=== PATIENT | male | born 1985 | race Caucasian/White ===

== ENCOUNTER 2022-03-28 13:15 | Emergency (ER) | payer OTHER ==
[2022-03-28 13:58] LABS: Group A Strep NOT DETECTED (NEGATIVE)
[2022-03-28 14:10] LABS: INFLUENZA A NEGATIVE (NEGATIVE); INFLUENZA B NEGATIVE (NEGATIVE); RESPIRATORY SYNCTIAL VIRUS NEGATIVE (Negative)
[2022-03-28 14:33] LABS: SARS-CoV-2 Xpert Express POSITIVE (NEGATIVE)
[2022-03-28 14:49] VITALS: BP 132/67; PULSE 78
[2022-03-28 14:53] VITALS: O2SAT 95
--- NOTE | 2022-03-28 14:53 | ERPHSYRPT ---
- History of Present Illness Time Seen by Provider: 03/28/22 13:26 Source: patient Exam Limitations: no limitations Patient Subjective Stated Complaint: PT states "It started out as congestion and now my voice is going. 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 PT ambulates with an upright steady gait, able to speak in full sentences pt voice is scratchy. Physician History: 37 years old male presented in the ER with flulike symptoms for the last week with progressive worsening. Patient reported initially started as a head cold and gradually getting worse with congestion in sinuses, sore throat and voice change without difficulty breathing or cough. 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 Timing/Duration: day(s) (4), constant, gradual onset, worse Cough Quality/Degree: no cough Possible Cause: no prior episodes Associated Symptoms: muscle aches, nasal congestion, nasal drainage, sinus infection, sore throat, No fever, No chest pain/soreness, No cough, No dizziness, No facial pain Allergies/Adverse Reactions: No Known Drug Allergies Allergy (Verified 03/28/22 13:24) Home Medications: Atenolol [Tenormin] 100 mg PO 03/28/22 [History] Atorvastatin Calcium [Lipitor 20MG Tablet] 20 mg PO 03/28/22 [History] Famotidine 20 mg [Pepcid 20 MG] 20 mg PO 03/28/22 [History] Metformin HCl 500 mg [Glucophage 500 MG] 500 mg PO BIDWM 03/28/22 [History] Hx Tetanus, Diphtheria Vaccination/Date Given: No Hx Influenza Vaccination/Date Given: No Hx Pneumococcal Vaccination/Date Given: No Immunizations Up to Date: Yes Travel Risk - International Travel Have you traveled outside of the country in past 3 weeks: No - Coronavirus Screening Are you exhibiting any of the following symptoms?: No Close contact with a COVID-19 positive Pt in past 14-21 Days: No - Vaccine Status Have you recieved a Covid-19 vaccination: Yes Assistant Customer Service Manager: [employer] - Vaccination Dates Date of 2cond Vaccination (if applicable): 2020 - Review of Systems Constitutional: No Symptoms Eyes: No Symptoms Ears, Nose, & Throat: Nose Congestion, Sinus Drainage, Throat Swelling Respiratory: No Symptoms Cardiac: No Symptoms Abdominal/Gastrointestinal: No Symptoms Musculoskeletal: Myalgias Skin: No Symptoms Neurological: No Symptoms Psychological: No Symptoms Endocrine: No Symptoms Hematologic/Lymphatic: No Symptoms Immunological/Allergic: No Symptoms - Past Medical History Pertinent Past Medical History: Yes Cardiac History: Hypertension Endocrine Medical History: Diabetes Type II - Past Surgical History Past Surgical History: No - Social History Smoking Status: Never smoker Exposure to second hand smoke: No Drug Use: none Patient Lives Alone: No - Nursing Vital Signs Nursing Vital Signs: Initial Vital Signs Temperature 98.3 F 03/28/22 13:20 Pulse Rate 85 03/28/22 13:20 Respiratory Rate 20 03/28/22 13:20 Blood Pressure 137/89 03/28/22 13:20 O2 Sat by Pulse Oximetry 95 03/28/22 13:20 Pain Scale Pain Intensity 0 - Physical Exam General Appearance: no apparent distress, alert Eye Exam: PERRL/EOMI Ears, Nose, Throat Exam: moist mucous membranes, pharyngeal erythema Neck Exam: normal inspection, non-tender, supple, full range of motion Respiratory Exam: normal breath sounds, lungs clear Cardiovascular Exam: regular rate/rhythm, normal heart sounds Back Exam: normal inspection, normal range of motion Extremity Exam: normal inspection, normal range of motion Neurologic Exam: alert, oriented x 3, cooperative Skin Exam: normal color SpO2 Interpretation: normal SpO2: 95 O2 Delivery: Room Air Lab/Rad Data: Laboratory Results 03/28/22 Range/Units Unknown Influenza Type A Ag NEGATIVE (NEGATIVE) Influenza Type B Ag NEGATIVE (NEGATIVE) RSV (PCR) NEGATIVE (Negative) SARS-CoV-2 (PCR) POSITIVE A (NEGATIVE) Group A Strep Antibody NOT DETECTED (NEGATIVE) - Progress Progress: unchanged Air Movement: good Progress Note: 03/28/22 14:50 Patient has positive COVID-19. Not in any distress. Nontoxic appearance. Recommended supportive care and outpatient follow-up. Discussed signs symptoms of worsening needing return to ER which he seems understanding. Blood Culture(s) Obtained: No Antibiotics given: No Counseled pt/family regarding: lab results, diagnosis, need for follow-up - Departure Departure Disposition: Home Clinical Impression: Viral syndrome, COVID-19 virus detected Condition: Stable Critical Care Time: No Referrals: GEOVANNY MURILLO MD [Primary Care Provider] - Follow Up with PCP/3 days Instructions: COVID-19 ED Additional Instructions: Follow contact/droplet precautions. Take Tylenol/ibuprofen as needed. Follow- up with primary care for reevaluation. Return to ER for worsening congestion or if having difficulty breathing, persistent high-grade fever, chest pain etc.
== END 2022-03-28 15:02 | disposition home or self-care (01) ==
LOC: ED 13:15
DX: U07.1 COVID-19 (principal); R09.81 Nasal congestion; J02.9 Acute pharyngitis, unspecified; M79.10 Myalgia, unspecified site; I10 Essential (primary) hypertension; E11.9 Type 2 diabetes mellitus without complications; Z79.84 Long term (current) use of oral hypoglycemic drugs; Z79.899 Other long term (current) drug therapy
CPT/HCPCS: 0241U; 87651; 99282